=== PATIENT | male | born 1975 | race Caucasian/White ===

== ENCOUNTER 2020-07-01 00:52 | Emergency (ER) | payer OTHER, SELFPAY ==
--- NOTE | ~2020-07-01 | CT_ITS ---
EXAMINATION: CTA neck DATE: 07/01/2020 02:18 INDICATION: Hanging attempt TECHNIQUE: Computed tomographic angiography (CTA) of the neck was performed with 100 mL Omnipaque-350 intravenous contrast. Multiplanar reconstructions and maximum intensity projection 3D-reconstruction s were created by the technologist on a separate workstation. The dose-length product was 651 mGy-cm. COMPARISON: None. FINDINGS: Normal caliber aortic arch with no dissection. There is 0% stenosis of the left and right c arotid bulbs relative to normal distal artery lumen diameter (NASCET criteria). Left vertebral artery is dominant. No dissection or vascular injury to the bilateral common, external or internal carotid arteries were of the bilateral vertebral arteries. Cervical soft tissues are unremarkable. Airway is patent. Mild cervical spondylosis. No fracture or malalignment. Mild right-sided and paraseptal predo minant emphysema at the apices No acute intracranial hemorrhage, acute infarction or abnormal extra a xial fluid collection. Ventricles are normal and symmetric. No mass/mass effect. Cerebral vasculature appears normal and symmetric. No aneurysm or stenosis. No abnormally enhancing brain lesions identif ied. The orbits, paranasal sinuses and mastoid air cells are normal. IMPRESSION: 1. Normal cervical vasculature with no dissection and no stenosis of the carotid bulbs relative to no rmal distal artery lumen diameter (NASCET criteria). 2. Normal brain. 3. Mild cervical spondylosis. No acute osseous abnormality. 4. Mild emphysema. Reviewed, dictated and finalized at location A. IMPRESSION: 1. Normal cervical vasculature with no dissection and no stenosis of the caroti d bulbs relative to normal distal artery lumen diameter (NASCET criteria). 2. Normal brain. 3. Mild cervical spondylosis. No acute osseous abnormality. 4. Mild emphysema.
--- NOTE | ~2020-07-01 | CT_ITS ---
EXAMINATION: CT brain wo con DATE: 07/01/2020 02:17 INDICATION: Hanging attempt TECHNIQUE: Computed tomography (CT) of the head was performed without intravenous contrast. Sagittal and coronal reconstructions were performed. The mA was adjusted according to patient size. Iterative reconstruction technique was employed. The dose-length product was 605.33 mGy-cm. COMPARISON: None FINDINGS: No acute intracranial hemorrhage, acute infarction or abnormal extra axial fluid collection. Ventricl es are normal and symmetric. No mass/mass effect. Mucous retention cyst in the right sphenoid sinus. The orbits and mastoid air cells are normal. IMPRESSION: 1. Mild brain. No acute intracranial process. Reviewed, dictated and finalized at location A.
[2020-07-01 00:48] VITALS: BP 139/93; PULSE 103; RESP 18; TEMP 36.6; O2SAT 96
--- NOTE | 2020-07-01 01:33 | ECG_ITS ---
Measurements Intervals [place] Rate: 80 P: 73 DE: 156 QRS: 14 QRSD: 77 T: 42 QT: 359 QTc: 415 Interpretive Statements SINUS RHYTHM DELAYED PRECORDIAL R/S TRANSITION BORDERLINE ECG Electronically Signed On 07-01-2020 7:43:20 CDT by Jovan Tavares D.O.
[2020-07-01 01:36] LABS: Basophils Absolute Auto 0.1 K/mm3 (0.0-0.1); Eosinophils Absolute Auto 0.1 K/mm3 (0-0.3); Eosinophils Percent Auto 1.9 % (0-4.4); Hematocrit 51.6 % (42.0-52.0); Hemoglobin 17.8 g/dL (14.0-18.0); Immature Granulocyte Absolute 0.04 K/mm3 (0.00-0.031); Immature Granulocyte Percent A 0.6 % (0-0.5); Lymphocytes Absolute Auto 1.74 K/mm3 (0.9-3.2); Lymphocytes Percent Auto 25.3 % (18.3-44.2); Mean Corpuscular HGB Conc 34.5 g/dl (32-36); Mean Corpuscular Hemoglobin 33.5 pg (26-34); Mean Corpuscular Volume 97.2 fl (80-100); Mean Platelet Volume 9.7 fl (7.4-10.4); Monocytes Absolute Auto 0.4 K/mm3 (0.1-0.6); Neutrophils Absolute Auto 4.5 K/mm3 (1.3-6.7); Neutrophils Percent Auto 65.2 % (45.5-73.1); Platelet Count Result 218 k/mm3 (150-375); Red Blood Count 5.31 M/mm3 (4.6-6.20); Red Cell Distribution Width 12.7 % (11.5-14.5); White Blood Count 6.9 K/mm3 (4.5-10.0)
--- NOTE | 2020-07-01 01:38 | ED.PSYCH ---
HPI - Psych General Chief Complaint: Psychiatric Symptoms <Charlene Garcia MD - Last Filed: 07/05/20 05:51> Stated Complaint: si <Charlene Garcia MD - Last Filed: 07/05/20 05:51> Time Seen by Provider: 07/01/20 01:01 <Charlene Garcia MD - Last Filed: 07/05/20 05:51> Source: patient <Charlene Garcia MD - Last Filed: 07/05/20 05:51> Limitations: no limitations <Charlene Garcia MD - Last Filed: 07/05/20 05:51> History of Present Illness HPI Narrative: This patient is a 44 year old male with history alcohol abuse and depression who presents for evaluation after suicide attempt. Patient attempted to hang himself with a belt from a fan. EMS reports the belt broke and there may have been LOC. Patient denies neck pain, headache , dysphage, sob, nausea or vomiting. He has an abrasion to his right upper arm and he is not sure how he got that injury. His tetanus is up to date. He states he stopped taking his depression medication 3 months ago due to side effects, but he has never attempted suicide before. He has been drinking alcohol tonight. <Charlene Garcia MD - Last Filed: 07/05/20 05:51> Related Data Home Medications: Home Medications Medication Instructions Recorded Confirmed cholecalciferol (vitamin D3) 10 mcg PO DAILY 07/01/20 [Vitamin D3] diphenhydramine HCl [Benadryl] 25 mg PO HS PRN 07/01/20 omeprazole 20 mg PO DAILY 07/01/20 <Charlene Garcia MD - Last Filed: 07/05/20 05:51> Allergies/Adverse Reactions: Allergies Allergy/AdvReac Type Severity Reaction Status Date / Time No Known Allergies Allergy Verified 07/01/20 00:56 <Charlene Garcia MD - Last Filed: 07/05/20 05:51> Review of Systems Review of Systems: All systems reviewed & are unremarkable except as noted in HPI and below <Charlene Garcia MD - Last Filed: 07/05/20 05:51> Constitutional: Constitutional: Denies chills and Denies fever(s) <Charlene Garcia MD - Last Filed: 07/05/20 05:51> Respiratory: Respiratory: Denies cough and Denies dyspnea <Charlene Garcia MD - Last Filed: 07/05/20 05:51> Gastrointestinal: Gastrointestinal: Denies abdominal pain and Denies nausea <Charlene Garcia MD - Last Filed: 07/05/20 05:51> Neurologic: Denies vertigo, Denies headache(s), Denies focal weakness and Denies numbness <Charlene Garcia MD - Last Filed: 07/05/20 05:51> PMFSH Past Medical History Medical History: Medical History (Updated 07/03/20 @ 00:00 by Kandace Redd) Anxiety Depression <Charlene Garcia MD - Last Filed: 07/05/20 05:51> Social History Social History: Social History (Updated 07/01/20 @ 01:38 by Charlene Garcia MD) Smoking packs per day: 1 Smoking cigarettes per day: 20.0 Alcohol intake: current Substance use: never <Charlene Garcia MD - Last Filed: 07/05/20 05:51> Exam Narrative: Exam Narrative: GENERAL: Well-appearing, well-nourished, and in no acute distress. HEAD: Normocephalic, atraumatic EYES: PERRLA and EOMI, conjunctiva clear without discharge EARS: TM's clear bilaterally without erythema or dullness NOSE: Nares clear, no rhinorrhea or epistaxis THROAT:Mucous membranes moist, Oropharynx normal without erythema, exudate, peritonsillar swelling or fluctuance NECK: Supple, without lymphadenopathy or mass RESPIRATORY: No respiratory distress, Airway patent, Respirations non-labored, Clear to auscultation without rales, rhonchi or wheeze HEART: Regular rate and rhythm. No murmur heard. Normal peripheral pulses. ABDOMEN: Soft, nontender, nondistended, normal active bowel sounds. No masses. No rebound or guarding, No organomegaly. EXTREMITIES: No edema, normal strength with full range of motion. SKIN: Warm, dry, normal color without rash NEURO: Alert and oriented x3. CN 2-12 grossly intact. No focal deficits. PSYCH: Normal mood and affect. <Charlene Garcia MD - Last Filed: 07/05/20 05:51> Course
[2020-07-01 01:48] LABS: Ethanol 184 mg/dL (<10)
[2020-07-01 01:50] LABS: Alanine Aminotransferase 11 U/L (4-50); Albumin Level 4.4 g/dL (3.5-5.1); Alkaline Phosphatase 82 U/L (38-126); Anion Gap 7 mmol/L (8-16); Aspartate Amino Transferase 23 U/L (17-59); Bilirubin,Total 0.6 mg/dL (0.2-1.3); Blood Urea Nitrogen 8 mg/dL (9-20); Calcium 8.5 mg/dL (8.4-10.2); Carbon Dioxide 26 mmol/L (22-30); Chloride 107 mmol/L (98-107); Estimated CRCL calculation 109 ml/min; Estimated Glomerular Filt Rate > 60; Glucose 109 mg/dL (75-110); Potassium 3.9 mmol/L (3.4-5.0); Sodium 140 mmol/L (137-145)
[2020-07-01 02:04] LABS: Amphetamine Screen Urine Negative (Negative); Barbiturate Screen Urine Negative (Negative); Benzodiazepines Screen Urine Negative (Negative); Cannabinoid Screen Urine Negative (Negative); Cocaine Screen Urine Negative (Negative); Methadone Screen Urine Negative (Negative); Opiate Screen Urine Negative (Negative); Phencyclidine Screen Urine Negative (Negative)
--- NOTE | 2020-07-01 06:10 | PC.NURSE ---
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 [facility] enrollment eligibility representative Emma attempting to place him now
--- NOTE | 2020-07-01 06:52 | PC.NURSE ---
Spoke with mother Mita Waters who lives in [place]. , Home#[phone]. She stated that patient at first made promise that he wouldn't do anything but then further while talking to him he stated that he couldn't promise for sure . Per mother is in [place] caring for family.
[2020-07-01 08:00] VITALS: BP 100/58; PULSE 78; RESP 14; TEMP 36.8; O2SAT 95
--- NOTE | 2020-07-01 10:03 | PC.NURSE ---
Pt's sister Yolanda left a number to reach her at and asked to be called when the patient wakes up. ([phone]
[2020-07-01 11:14] LABS: Ethanol 15 mg/dL (<10)
--- NOTE | 2020-07-01 13:01 | PC.NURSE ---
Faxed information to [facility]
[2020-07-01 16:13] LABS: Add Urine Microscopic? YES; Amorphous Sediment Urine Few; Appearance Urine Cloudy (Clear); Bacteria Urine Trace /hpf; Bilirubin Urine Negative (Negative); Blood Urine Negative (Negative); Color Urine Yellow (Yellow); Glucose Urine UA Negative (Negative); Ketones Urine Negative (Negative); Leukocyte Esterase Ur Negative LEU/UL (Negative); Mucus Urine Rare /lpf; Nitrate Urine Negative (Negative); Protein Urine Negative (Negative); WBC Urine 0-3 /hpf
[2020-07-01 16:24] VITALS: BP 121/70; PULSE 75; RESP 14; TEMP 36.9; O2SAT 99
[2020-07-01 16:27] LABS: Magnesium 2.4 mg/dL (1.6-2.3)
--- NOTE | 2020-07-01 18:15 | PC.NURSE ---
Pt states he takes no home medications.
--- NOTE | 2020-07-01 19:22 | PC.NURSE ---
Report received from YAZMIN Gonzalez. Assumed care of patient at this time.
[2020-07-02 11:15] VITALS: BP 134/77; PULSE 105; TEMP 36.6; O2SAT 97
--- NOTE | 2020-07-02 11:23 | PC.NURSE ---
requested paperwork and information faxed to [facility] at [phone]
[2020-07-02 13:06] LABS: SARS-CoV-2 RNA PCR Negative
--- NOTE | 2020-07-02 13:36 | PC.NURSE ---
requested paperwork and information faxed to [facility]
--- NOTE | 2020-07-02 15:13 | PC.NURSE ---
refaxed [facility] [place] by [facility] pt's chart.
--- NOTE | 2020-07-02 15:18 | PC.NURSE ---
requested information faxed again to [facility], [facility] by [facility]
--- NOTE | 2020-07-02 17:40 | PC.NURSE ---
refaxed pt's chart to [facility] - [phone]
--- NOTE | 2020-07-02 19:46 | PC.NURSE ---
report called to jessica Quesada at [facility]
[2020-07-02 21:10] VITALS: BP 132/77; PULSE 78; RESP 18; O2SAT 99
== END 2020-07-02 21:12 ==
PROVIDERS: Emergency Medicine; General Practice; Emergency Provider Emergency Medicine
DX: T71.162A Asphyxiation due to hanging, intentional self-harm, initial encounter (principal); Z20.828 Contact with and (suspected) exposure to other viral communicable diseases; F32.9 Major depressive disorder, single episode, unspecified; F41.9 Anxiety disorder, unspecified; F17.210 Nicotine dependence, cigarettes, uncomplicated
CPT/HCPCS: 36415; 70450; 70498; 80053; 80307; 81001; 83735; 84443; 85025; 87635; 93005; 99285; C9803; L0140; Q9967; U0003